=== PATIENT | female | born 1945 | race Caucasian/White ===

== ENCOUNTER → 2017-11-20 | Outpatient (CLI) | payer OTHER, BC ==
[~2017-11-20] VITALS: Ht 160 cm; Wt 74.4 kg
[~2017-11-20] MED LIST: APAP500 PO; ATACAND32 MG PO; BENICAR20 MG PO; BYSTOLIC10 MG PO; CALCIUM 600 +1 EAC1 PO; CHLORTHALIDONE25 MG PO; COLESTID1 GM PO; CRESTOR10 MG; DICLOFENAC SODI75 MG PO; DIOVAN HCT 3201 EACH PO; GABAPENTIN100 MG PO; HYDROCODONE-AP1 EAC6 PO; IBUPROFEN 200200 M1 PO; IMODIUM A-D2 MG PO; LIDOCAINE1 EACH TRANSDERM; MEDROL DOSPAK21 TA1 PO; MELOXICAM7.5 MG PO; METAMUCIL0.4 GM PO; MULTIVITAMINS1 EAC7; NEURONTIN 300300 M1 PO; NEXIUM40 MG PO; RELAFEN750 MG PO; TRAMADOL 50 MG50 MG PO; TRICOR145 MG PO; VESICARE 5 MG TA5 MG PO; VITAMIN C + RO500 MG PO
--- NOTE | ~2017-11-20 | HPC ---
[facility] [place] [address] PAIN MANAGEMENT CONSULTATION Name: DOROTHY DE LA TORRE [facility]: [id number] Admission: 11/20/17 Attend Phys: Lars Choi DO Discharge: Date of : 45 Report #: [id number] THIS REPORT FOR: //name// CC: Nandini Pinon Lars Choi The patient is a 72-year-old female prior seen in the pain clinic greater than 4 years ago for lumbar radiculopathy, status post decompressive laminectomy. She did well with caudal epidural injection and was lost to follow up. She returns to the pain clinic today noting pain has begun to recur. She had a trip recently. She did not completely fall, but she did somewhat "wrench " her back. She has developed pain in the left low back radiating to the hip and lateral thigh. This is going on for greater than 6 weeks. She has been using diclofenac orally and Lidoderm patches with nominal efficacy. She is starting to develop some weakness on this left side. Fortunately, she denies any saddle anesthesia or bowel or bladder continence changes. She notes pain is up to a 9 on a VAS, exacerbated with standing and walking. REVIEW OF SYSTEMS: Complete review of systems was attached to the chart and was gone over with the patient. She is . She does not smoke, drink alcohol to excess. History of some hypertension and irritable bowel syndrome and status post three decompressive lumbar laminectomies, L3, L4 in 2010. She retired in 2010. Pain impact score is quite high averaging 63/70. Medication list was reconciled, the list is on the electronic medical record. PHYSICAL EXAMINATION: Reveals a 5 feet 3 inches, 164 pounds female, BMI is 29.1 kilograms per meter squared, blood pressure is 127/69, pulse 73, respirations 20. Cranial nerves 2-12 are grossly intact. Pupils are equal and react to light and accommodation. Extraocular muscles are intact. Rises from chair using armrest. Diffuse tenderness across the low back. Antalgic gait favoring the left leg. Positive straight leg raise on the left. Decreased left hip flexion strength. Well-healed surgical scar compatible with a prior history. Lumbar flexion is limited to about 70 degrees. DIAGNOSTIC STUDIES: Includes MRI of the lumbar spine from 11/14/2017. Does note post-surgical changes of right L3, bilateral L4 and right L5 laminectomies. Retrolisthesis of L5-S1 of 5 mm. Multilevel lumbar arthrosis, mildly progressed from prior MRI (compared to a study from 04/22/2015), most significant low lumbar areas resulting in moderate to severe neural foraminal narrowing L3-L4 through L5-S1. ASSESSMENT: Symptomatic lumbar radiculopathy, status post decompressive laminectomy, ongoing radicular symptoms without myelopathy. [address] [address] PAIN MANAGEMENT CONSULTATION Name: DOROTHY DE LA TORRE Room #: REG [facility] Rosina#: [id number] Admission: 11/20/17 Attend Phys: Lars Choi DO Discharge: Date of : 45 Report #: [id number] RECOMMENDATION: 1. Caudal epidural injection under fluoroscopy today. 2. Continue diclofenac. 3. Follow up in 3 weeks for reevaluation. Consider repeat injection if indicated clinically. PROCEDURE: Caudal epidural injection under fluoroscopy. PROCEDURE NOTE: After written informed consent was obtained, the patient was taken to the fluoroscopy suite and placed in the prone position. After sterile prep and drape, skin wheal was raised. A 22-gauge stylet needle was placed through the sacral hiatus into the caudal epidural space. Negative aspiration was accomplished. 1 mL of Omnipaque was injected, which showed spread within the sacral space. This was followed with 80 mg of triamcinolone plus 5 mL of 0.5% preservative-free lidocaine. The needle was removed. The area was cleansed, Band-Aid was applied. The patient monitored for an appropriate period of time and discharged in good and stable condition. <ELECTRONICALLY SIGNED> By: Lars Choi DO 11/23/17 0925 [id number] Lars Choi DO /nt
[2017-11-20 14:38] VITALS: BP 127/69
== END | disposition home or self-care (01) ==
LOC: PAIN 07:15
DX: M54.16 Radiculopathy, lumbar region (principal); Z98.890 Other specified postprocedural states

== ENCOUNTER → 2018-01-28 | Outpatient (CLI) | payer OTHER, BC ==
[~2018-01-28] VITALS: Ht 160 cm; Wt 69.6 kg
--- NOTE | ~2018-01-28 | HPC ---
[facility] [place] [address] PAIN MANAGEMENT CONSULTATION Name: DOROTHY DE LA TORRE Room #: REG [facility]#: [id number] Admission: 01/28/18 Attend Phys: Lars Choi DO Discharge: Date of : 45 Report #: [id number] THIS REPORT FOR: //name// CC: Nandini Pinon Lars Choi DATE OF SERVICE: 01/28/2018 The patient is a 72-year-old female, prior seen in pain clinic 01/22/2018. The patient has history of lumbar radiculopathy status post decompressive laminectomy, component of left SI mediated pain. At that visit, we did a left SI joint injection with overall improvement of the axial back pain. She still has ongoing left L3 pain with decreased left hip flexion strength that is fairly dramatic, slight decreased lower extremity extension strength. A little tenderness over the SI joint, though it is significantly improved. HESHAM test is negative. ASSESSMENT: Lumbar radiculopathy, left L3 pattern, status post decompressive laminectomy, component of sacroiliac mediated pain, which is relatively improved. RECOMMENDATION: Epidural injection under fluoroscopy today. Follow up in 2 weeks for reevaluation, cancel if doing well. PROCEDURE: Lumbar epidural injection under fluoroscopy. PROCEDURE NOTE: After both written and informed consent to include risk of spinal cord damage, increased pain, weakness and dural puncture, the patient was taken to the fluoroscopy suite, placed in the prone position. After sterile prep and drape, a skin wheal with lidocaine was raised. A 22-gauge epidural Tuohy needle was inserted in the midline at L3-L4 with good loss to resistance. Negative aspiration for cerebrospinal fluid or blood was noted. Then 1 mL of Omnipaque under biplanar fluoroscopy showed good spread within the epidural space. This was followed with 80 mg of triamcinolone plus 1 mL of 1.5% preservative-free Xylocaine, 0.5 mL Xylocaine was then injected to flush the needle; it was removed. The patient was monitored for an appropriate period of time and discharged in good and stable condition. <ELECTRONICALLY SIGNED> By: Lars Choi DO 02/01/18 0711 [id number] Lars Choi DO /nt
[2018-01-28 11:00] VITALS: BP 128/53
== END | disposition home or self-care (01) ==
LOC: PAIN 05:40
DX: M54.16 Radiculopathy, lumbar region (principal); M53.3 Sacrococcygeal disorders, not elsewhere classified; G89.29 Other chronic pain; Z98.890 Other specified postprocedural states; Z87.891 Personal history of nicotine dependence; Z88.8 Allergy status to other drugs, medicaments and biological substances; Z79.899 Other long term (current) drug therapy; Z79.891 Long term (current) use of opiate analgesic